=== PATIENT | male | born 1980 | race Caucasian/White ===

== ENCOUNTER → 2019-12-29 | Outpatient (CLI) | payer OTHER ==
[~2019-12-29] MED LIST: AMITRIPTYLINE H25 M1; CELEBREX 200MG200 MG PO; FLEXERIL 1010 MG/TAB PO; NEURONTIN600 MG/TAB PO; ZOFRAN ODT4 MG PO
== END ==
LOC: MHCPAIN 10:03
DX: M47.812 Spondylosis without myelopathy or radiculopathy, cervical region (principal); M54.2 Cervicalgia; R51 Headache; G89.29 Other chronic pain
CPT/HCPCS: G0463

== ENCOUNTER → 2020-01-08 | Outpatient (CLI) | payer OTHER | LOC: MHCPAIN 12:28 | DX: M47.812 Spondylosis without myelopathy or radiculopathy, cervical region (principal); M54.2 Cervicalgia; R51 Headache ==

== ENCOUNTER 2020-02-17 21:40 | Emergency (ER) | payer OTHER ==
[~2020-02-17] VITALS: Ht 172.7 cm; Wt 81.8 kg
[2020-02-17 21:45] VITALS: TEMP 98.5
[2020-02-17 21:50] LABS: BASO % 0.2 % (0.0-2.0); GRAN # 9.3 (1.4-6.5); GRAN % 73.4 % (42.2-75.2); HEMOGLOBIN 15.2 g/dl (13.5-18.0); LYMPH # 2.1 (1.2-3.4); LYMPH % 16.7 % (20.0-51.0); MEAN CELL VOLUME 86 fl (80.0-100.0); MEAN CORPUSCULAR HEMOGLOBIN 32 pg (27.0-31.0); MEAN CORPUSCULAR HGB CONC 37 g/dl (33.0-37.0); MEAN PLATELET VOLUME 9.2 fl (7.4-10.4); MONO # 1.2 (0.1-0.6); MONO % 9.4 % (1.7-9.3); PLATELET COUNT 330 K/mm3 (130-400); RED BLOOD COUNT 4.75 M/mm3 (4.20-5.60); REDCELL DISTRIBUTION WIDTH-CV 12.2 % (11.5-14.5)
[2020-02-17] MEDS ORDERED: NEXIUM 20MG20 MG PO (21:51)
[2020-02-17] MEDS ORDERED: PHENERGAN 25 TA25 MG PO (21:51)
[2020-02-18 00:30] VITALS: BP 164/78; PULSE 84
[2020-02-18 02:37] LABS: ALANINE AMINOTRANSFERASE 33 U/L (4-49); ALBUMIN 4.5 gm/dL (3.5-5.0); ALKALINE PHOSPHATASE 65 U/L (50-136); ANION GAP 20 mmol/L (7-16); AST,SGOT 42 U/L (15-37); BILIRUBIN,TOTAL 1.3 mg/dL (0.0-1.0); BLOOD UREA NITROGEN 23 mg/dL (9-20); CALCIUM 9.4 mg/dL (8.4-10.2); CARBON DIOXIDE 18 mmol/L (22-30); CHLORIDE 103 mmol/L (98-107); CREATININE, serum 0.99 (0.66-1.25); GLUCOSE 121 mg/dL (74-106); LIPASE 66 U/L (23-300); POTASSIUM 3.3 mmol/L (3.4-5.0); SODIUM 140 mmol/L (137-145); TOTAL PROTEIN 7.1 gm/dL (6.4-8.2)
[2020-02-18 02:55] LABS: ALCOHOL(ethanol),MEDICAL < 10 mg/dL
== END 2020-02-18 00:30 | disposition home or self-care (01) ==
LOC: COL.ER 21:40
PROVIDERS: Emergency Medicine
DX: F10.10 Alcohol abuse, uncomplicated (principal)
CPT/HCPCS: J2060

== ENCOUNTER 2020-03-09 17:55 | Emergency (ER) | payer OTHER ==
[~2020-03-09] VITALS: Ht 40.6 cm; Wt 81.8 kg
[~2020-03-09 17:55] MED LIST changes: +NEXIUM 20MG20 MG PO; +PHENERGAN 25 TA25 MG PO
[2020-03-09 18:04] VITALS: BP 152/87; TEMP 97.8
[2020-03-09 19:34] VITALS: PULSE 80
== END 2020-03-09 19:34 | disposition home or self-care (01) ==
LOC: COL.ER 17:55
DX: G89.29 Other chronic pain (principal); G97.82 Other postprocedural complications and disorders of nervous system; Z98.890 Other specified postprocedural states
CPT/HCPCS: J2270

== ENCOUNTER 2020-05-22 10:07 | Emergency (ER) | payer OTHER ==
[~2020-05-22] VITALS: Ht 172.7 cm; Wt 81.8 kg
[2020-05-22 10:12] VITALS: TEMP 98.1
[2020-05-22] MEDS ORDERED: PERCOCET 325 MG1 TA2 PO (12:19)
[2020-05-22 12:30] VITALS: BP 136/97; PULSE 109
== END 2020-05-22 12:30 | disposition home or self-care (01) ==
LOC: COL.ER 10:07
DX: M54.2 Cervicalgia (principal)
CPT/HCPCS: J1170; J2550

== ENCOUNTER → 2020-05-31 | Outpatient (CLI) | payer OTHER ==
[~2020-05-31] MED LIST changes: +PERCOCET 325 MG1 TA2 PO
== END ==
LOC: COL.RAD
DX: M43.22 Fusion of spine, cervical region (principal); Z96.9 Presence of functional implant, unspecified; Z98.1 Arthrodesis status; Z98.890 Other specified postprocedural states

== ENCOUNTER 2020-06-05 08:26 | Emergency (ER) | payer OTHER ==
[~2020-06-05] VITALS: Ht 172.7 cm; Wt 84.1 kg
[2020-06-05 08:34] VITALS: BP 152/107; TEMP 97.5
[2020-06-05] MEDS ORDERED: NORCO 325 MG-51 TAB PO (08:51)
[2020-06-05] MEDS ORDERED: ZANAFLEX 4MG TAB4 MG PO (08:51)
[2020-06-05 09:13] VITALS: PULSE 92
== END 2020-06-05 09:13 | disposition home or self-care (01) ==
LOC: COL.ER 08:26
DX: M54.2 Cervicalgia (principal)
CPT/HCPCS: J1885